=== PATIENT | male | born 1985 | race Caucasian/White ===

== ENCOUNTER 2021-04-06 23:51 | Inpatient (IN) | payer MEDICAID, SELFPAY ==
[2021-04-06 23:52] VITALS: BP 118/83; PULSE 77; RESP 16; TEMP 35.6; O2SAT 100; BMI 22.8
[2021-04-07 01:05] LABS: Absolute Lymphocyte Count 1.96 X10^3/uL (0.83-4.51); Absolute Neutrophil Count 3.4 X10^3/uL (2.0-7.7); Basophil# 0.05 X10^3/uL; Basophil% 0.8 % (0-1); Eosinophil# 0.12 X10^3/uL; Hematocrit 37.9 % (40-54); Hemoglobin 12.8 g/dL (13.0-16.5); Lymphocyte # 1.96 X10^3/ul (0.83-4.51); Lymphocyte % 33.1 % (19-41); Mean Corp Hgb Conc 33.8 g/dL (32-36); Mean Corpuscular Hgb 29.2 pg (27.0-32.0); Mean Corpuscular Volume 86.5 fL (80-94); Monocyte# 0.39 X10^3/uL; Monocyte% 6.6 % (0-10); NRBC Flagged by Analyzer 0 % (0-5); Neutrophil % 57.3 % (47-70); Platelet Count 207 K/mm3 (150-450); RBC Distribution Width CV 12.6 % (11.6-14.6); RBC Distribution Width SD 39.9 fl (35.1-43.9); Red Blood Count 4.38 M/mm3 (4.6-6.2); White Blood Count 5.9 K/mm3 (4.4-11.0)
[2021-04-07 01:24] LABS: Alcohol, Blood (Medical)-Serum < 3.0 mg/dL
[2021-04-07 01:26] LABS: Anion Gap 3 (5-15); BUN 18 mg/dL (7-18); BUN/Creat Ratio 17.1 RATIO (10-20); Calcium,Total 8.7 mg/dL (8.5-10.1); Chloride 100 mmol/L (98-107); Creatinine, Serum 1.05 mg/dL (0.70-1.30); EST Glomerular Filtration Rate 84 mL/min (>60); Est Glom Filt Rate - Afr Amer 102 mL/min (>60); Estimated Creatinine Clearance 109.68 ml/min; Glucose 86 mg/dL (74-106); Potassium 3.9 mmol/L (3.5-5.1); Sodium Level 133 mmol/L (136-145)
--- NOTE | 2021-04-07 01:58 | EX.ED.SAOD ---
HPI History of Present Illness Chief Complaint: Substance Abuse Narrative Narrative: 35-year-old male presenting for detox from fentanyl. He states he uses about a gram a day. He states he does this IV and has been doing this for a long time. Patient not have any current withdrawal symptoms because he last used prior to coming to the ED. Patient states his last detox was in assisted about 3 years ago. Patient states he has a hospital history of hep C. He denies any other drug use or alcohol abuse. [facility] Medical History Substance abuse Home Medications NK 04/06/21 [History Last Taken Unknown] Allergy/AdvReac Type Severity Reaction Status Date / Time No Known Allergies Allergy Verified 04/06/21 23:57 Social History Smoking Status: Current every day smoker tobacco type: cigarettes ROS ROS ED Constitutional Constitutional ED: Denies chills, fever(s) or sweats Eyes Eyes: Denies blurry vision or diplopia ENT ENT ED: Denies rhinorrhea or sore throat Cardiovascular Cardiovascular: Denies chest pain or palpitations Respiratory/Chest Respiratory/Chest: Denies cough or dyspnea Gastrointestinal Gastrointestinal: Denies abdominal pain, nausea or vomiting Genitourinary Genitourinary ED: Denies dysuria or urinary frequency Musculoskeletal Musculoskeletal: Denies arthralgias, myalgias or neck pain Integumentary Denies abscess or rash Neurologic Neurologic: Denies headache(s), paresthesias or weakness EXAM Physical Exam Const Vital Signs: 04/06/21 23:52 Temperature 96.1 F L Temperature Source Temporal Pulse Rate 77 Respiratory Rate 16 Blood Pressure 118/83 H Blood Pressure Mean 94 Pulse Ox 100 Oxygen Delivery Method Room Air Positive well nourished General Appearance ED: NAD HEENT Reports moist mucous membranes atraumatic Eyes PERRL and EOMs intact bilaterally Resp normal respiratory effort and clear to auscultation bilaterally Cardio regular rate and regular rhythm Neuro oriented x3 Sensorium / Orientation: alert Psych mental status grossly normal and thought process normal Skin Lesions: no lesions Rashes: no rashes MDM MDM MDM Narrative Medical decision making narrative: Patient presenting for detox. His lab work is unremarkable. EtOH is negative. Patient not experiencing symptoms currently. Discussed with hospitalist for admission and he will be admitted to he will be admitted to the medical floor in stable condition. Impression: 1. Fentanyl abuse Lab Data Labs: Laboratory Results - last 24 hr 04/07/21 04/07/21 04/07/21 00:52 00:58 00:58 WBC 5.9 RBC 4.38 L Hgb 12.8 L Hct 37.9 L MCV 86.5 MCH 29.2 MCHC 33.8 RDW Std Deviation 39.9 RDW Coeff of Liz 12.6 Plt Count 207 MPV 10.0 Immature Gran % (Auto) 0.200 Neut % (Auto) 57.3 Lymph % (Auto) 33.1 [place] % (Auto) 6.6 Eos % (Auto) 2.0 Baso % (Auto) 0.8 Absolute Neuts (auto) 3.4 Absolute Lymphs (auto) 1.96 Nucleated RBC % 0 Sodium 133 L Potassium 3.9 Chloride 100 Carbon Dioxide 30.0 Anion Gap 3 L BUN 18 Creatinine 1.05 Estim Creat Clear Calc 109.68 Est GFR (MDRD) Af Amer 102 Est GFR (MDRD) Non-Af 84 BUN/Creatinine Ratio 17.1 Glucose 86 Calcium 8.7 Ur Drug Screen Comment Ethyl Alcohol < 3.0 04/07/21 01:07 WBC RBC Hgb Hct MCV MCH MCHC RDW Std Deviation RDW Coeff of Liz Plt Count MPV Immature Gran % (Auto) Neut % (Auto) Lymph % (Auto) [place] % (Auto) Eos % (Auto) Baso % (Auto) Absolute Neuts (auto) Absolute Lymphs (auto) Nucleated RBC % Sodium Potassium Chloride Carbon Dioxide Anion Gap BUN Creatinine Estim Creat Clear Calc Est GFR (MDRD) Af Amer Est GFR (MDRD) Non-Af BUN/Creatinine Ratio Glucose Calcium Ur Drug Screen Comment Ethyl Alcohol Discharge Plan Triage Chief Complaint: Substance Abuse ED Provider: Christiano Maurice Dx/Rx/DC Orders Primary Care Provider: Care Physician,No Primary
[2021-04-07 02:14] VITALS: BP 103/69; PULSE 71; RESP 16; TEMP 36.3; O2SAT 100
[2021-04-07 03:04] LABS: Amphetamine Urine VISTA NEGATIVE (<1000 ng/mL); Barbiturate Urine VISTA NEGATIVE (< 200 ng/mL); Benzodiazepine Urine VISTA NEGATIVE (< 200 ng/mL); Cocaine Urine VISTA NEGATIVE (< 300 ng/mL); Ecstacy Urine VISTA NEGATIVE (< 500 ng/mL); Methadone Urine VISTA NEGATIVE (< 300 ng/mL); PCP Urine VISTA NEGATIVE (< 25 ng/mL); THC Urine VISTA NEGATIVE (< 50 ng/mL); Vista UDS pH Range 5
--- NOTE | 2021-04-07 03:16 | HP.PCM.HOS_ITS ---
HPI - General General Date of Admission: 04/07/21 HPI Narrative VANCE MENDES, is a 35 M who presents to the hospital requesting detox. He is about a gram a day of fentanyl and his last use was immediately prior to admission to the hospital. He had been clean for some time and started using again in his past year, he is vague about the reasons why but states that he stopped going to his AA meetings and stopped talking to his sponsor. He would like to try to get clean again and is okay with meeting with [facility] for outpatient management once he completes the acute detox. He also states that he has a history of hepatitis C and he knows that it is why get retested but he is okay with being tested for HIV again, previous test have been negative. [facility] Medical History Substance abuse Home Medications NK 04/06/21 [History Last Taken Unknown] Allergy/AdvReac Type Severity Reaction Status Date / Time No Known Allergies Allergy Verified 04/06/21 23:57 Family History (Updated 04/07/21 @ 03:[address] Keyshawn Leung MD) Other Diabetes Social History Smoking Status: Current every day smoker tobacco type: cigarettes ROS Constitutional Constitutional: Denies chills, fatigue, fever(s) or malaise Eyes Eyes: Denies blurry vision ENT HEENT: Denies headache(s) or nasal discharge Cardiovascular Cardiovascular: Denies chest pain, dyspnea on exertion or syncope Respiratory/Chest Respiratory/Chest: Denies cough, shortness of breath at rest or shortness of breath with exertion Gastrointestinal Gastrointestinal: Denies constipation, diarrhea, nausea or vomiting Genitourinary Genitourinary: Denies dysuria Neurologic Neurologic: Denies focal weakness, numbness or tremor(s) Psychiatric Psychiatric: Denies anxiety or depression Vital Signs Vital Signs Vital Signs: 04/06/21 23:52 04/07/21 02:14 Temperature 96.1 F L 97.4 F L Temperature Source Temporal Temporal Pulse Rate 77 71 Respiratory Rate 16 16 Blood Pressure 118/83 H 103/69 Blood Pressure Mean 94 80 Pulse Ox 100 100 Oxygen Delivery Method Room Air Room Air Weight Weight: 177 lb 7.554 oz Body Mass Index (BMI) 22.8 Physical Exam Const alert, oriented x3 and no apparent distress General Appearance: cooperative HEENT normocephalic and moist oral mucous membranes Eyes PERRL, EOMs intact bilaterally and conjunctivae normal Neck supple and no JVD Resp normal respiratory effort, no retractions, no use of accessory muscles and clear to auscultation bilaterally Auscultation: Negative for crackles, rales, rhonchi or wheezes Cardio regular rate, regular rhythm, S1 normal heart sound, S2 normal heart sound and no murmurs GI soft to palpation, non-tender and non-distended; Negative for hepatosplenomegaly Extremity no clubbing, cyanosis or edema Skin Skin Narrative: Bilateral track silverio in his antecubital fossa Neuro no focal motor deficits and no sensory deficits noted Psych affect normal Appearance: appropriate Results Lab / Micro Data Result Diagrams: 04/07/21 00:58 04/07/21 00:52 Labs: Laboratory Results - last 24 hr 04/07/21 00:52: Sodium 133 L, Potassium 3.9, Chloride 100, Carbon Dioxide 30.0, Anion Gap 3 L, BUN 18, Creatinine 1.05, Estim Creat Clear Calc 109.68, Est GFR (MDRD) Af Amer 102, Est GFR (MDRD) Non-Af 84, BUN/Creatinine Ratio 17.1, Glucose 86, Calcium 8.7 04/07/21 00:58: WBC 5.9, RBC 4.38 L, Hgb 12.8 L, Hct 37.9 L, MCV 86.5, MCH 29.2, MCHC 33.8, RDW Std Deviation 39.9, RDW Coeff of Liz 12.6, Plt Count 207, MPV 10.0, Immature Gran % (Auto) 0.200, Neut % (Auto) 57.3, Lymph % (Auto) 33.1, [place] % (Auto) 6.6, Eos % (Auto) 2.0, Baso % (Auto) 0.8, Absolute Neuts (auto) 3.4, Absolute Lymphs (auto) 1.96, Nucleated RBC % 0 04/07/21 00:58: Ethyl Alcohol < 3.0 04/07/21 01:07: Urine Opiates Screen NEGATIVE, Urine Methadone Screen NEGATIVE, Ur Barbiturates Screen NEGATIVE, Ur Phencyclidine Scrn NEGATIVE, Ur Amphetamines Screen NEGATIVE, U Methamphetamin-MDMA NEGATIVE, U Benzodiazepines Scrn NEGATIVE, Urine Cocaine Screen NEGATIVE, U Cannabinoids Screen NEGATIVE, Ur Drug Screen Comment Assessment & Plan Assessment/Plan (1) Opiate abuse, continuous: PLAN: 1. Acute opiate withdrawal/hep C/tobacco abuse -Continue with the opiate withdrawal protocol, he is hepatitis C positive -We will follow up with [facility] as an outpatient -Test for HIV -He does understand that he cannot get treatment for hepatitis C until he is clean DVT: Ambulation Charges/Coding Visit Charges Inpatient E&M: 12256 Init Hosp L2
[2021-04-07 03:46] VITALS: PULSE 68; BMI 22.4
[2021-04-07 03:55] VITALS: BP 106/74; PULSE 67; RESP 12; TEMP 36.7; O2SAT 100
--- NOTE | 2021-04-07 05:08 | PCS.PANDOC ---
PANDEMIC DOCUMENTATION INITIATED: Date: 03/14/2021 Time: 5003
--- NOTE | 2021-04-07 05:09 | PCS.PANDOC ---
PANDEMIC DOCUMENTATION INITIATED: Date: 04/07/2021 Time: 1179
--- NOTE | 2021-04-07 09:59 | ADDICTION ---
TW met with PT to complete the ASAM, AUDIT, DUDIT, MSE, and start d/c planning. PT was a+ox4, pleasant, and answered all questions asked. PT reported he attended residential treatment and sober living in 2017 and had 3.5 years sober. He reported he relapsed in 2019 and has been using for approximately a year. Pt stated he was recently arraigned on 04/05/21 and was mandated to give UDS daily until June. Pt reported he needed to enter detox before being able to do so. PT requested a DORIE be filled out for [facility] Common Pleas and TW called over to inform them of PT's admission to detox. Pt stated he wanted resources in [facility] due to having to go back and forth to court. He also reported he wanted to d/c home in order to pack his belongings and move back to [place] where his sober support lives. TW will provide resources and inquire again about making an appointment. No transportation needs necessary.
--- NOTE | 2021-04-07 10:44 | ADDICTION ---
TW provided PT with AA/NA resources in [place] and surrounding areas and provided resources for [facility] in [place]. TW obtained DORIE for [facility] and faxed application to have [facility] pay for PT's stay at detox.
[2021-04-07] MEDS: hydrOXYzine PAM 25 MG Capsule 50 MG PO ×2 (10:54→17:58)
[2021-04-07] MEDS: Dicyclomine 10 MG Capsule 20 MG PO (10:54)
[2021-04-07] MEDS: Methocarbamol 750 MG Tablet 1500 MG PO ×2 (10:54→17:58)
--- NOTE | 2021-04-07 12:55 | CASEMGMT ---
Social Work SW met with pt and provided financial resources as pt does not have medical insurance. Pt states he recently has applied for Medicaid but has not heard a response from [employer]. SW encouraged pt to be in contact with S regarding application. Resources for [employer]anna [employer], [employer], prescription assistance, [employer] and medicaid provided. Pt accepting of information and has no further questions and denies any needs. MILAGROS William
[2021-04-07] MEDS: Buprenorphine HCl 2 MG TAB.SUBL SL ×2 (13:32→19:12)
--- NOTE | 2021-04-07 13:46 | PCM.PN.HOSP ---
Subjective Subjective Patient has anxiety restlessness, fatigue and not feeling good. No fever. Objective Data Objective Data Vital Signs: Vital Signs Temp Pulse Resp BP Pulse Ox 98.1 F 67 12 106/74 100 04/07/21 03:55 04/07/21 03:55 04/07/21 03:55 04/07/21 03:55 04/07/21 03:55 Oxygen Delivery Method Room Air Weight: 174 lb 2.643 oz Body Mass Index (BMI) 22.4 Intake & Output: Intake and Output for Last 24 Hours 04/05/21 04/06/21 04/07/21 23:59 23:59 23:59 Intake Total 410 / 410 Balance 410 / 410 Lab / Micro Data Result Diagrams: 04/07/21 00:58 04/07/21 00:52 Labs: Laboratory Results - last 24 hr 04/07/21 00:52: Sodium 133 L, Potassium 3.9, Chloride 100, Carbon Dioxide 30.0, Anion Gap 3 L, BUN 18, Creatinine 1.05, Estim Creat Clear Calc 109.68, Est GFR (MDRD) Af Amer 102, Est GFR (MDRD) Non-Af 84, BUN/Creatinine Ratio 17.1, Glucose 86, Calcium 8.7 04/07/21 00:58: WBC 5.9, RBC 4.38 L, Hgb 12.8 L, Hct 37.9 L, MCV 86.5, MCH 29.2, MCHC 33.8, RDW Std Deviation 39.9, RDW Coeff of Liz 12.6, Plt Count 207, MPV 10.0, Immature Gran % (Auto) 0.200, Neut % (Auto) 57.3, Lymph % (Auto) 33.1, [place] % (Auto) 6.6, Eos % (Auto) 2.0, Baso % (Auto) 0.8, Absolute Neuts (auto) 3.4, Absolute Lymphs (auto) 1.96, Nucleated RBC % 0 04/07/21 00:58: Ethyl Alcohol < 3.0 04/07/21 01:07: Urine Opiates Screen NEGATIVE, Urine Methadone Screen NEGATIVE, Ur Barbiturates Screen NEGATIVE, Ur Phencyclidine Scrn NEGATIVE, Ur Amphetamines Screen NEGATIVE, U Methamphetamin-MDMA NEGATIVE, U Benzodiazepines Scrn NEGATIVE, Urine Cocaine Screen NEGATIVE, U Cannabinoids Screen NEGATIVE, Ur Drug Screen Comment Micro: Microbiology 04/07/21 02:12 Nasal Secretion SARS-CoV-2 Antigen (Rapid) - Final Physical Exam Narrative Physical exam General: Alert, Oriented x3, Cooperative HEENT: Atraumatic, PERRLA, EOMI, Normocephalic Oral: No Gingival or Mucosal Lesions/ Ulcerations Neck: Supple, No JVD, Negative Carotid Bruits Lungs: Air entry equal in bilateral lung bases. No crepitation/rhonchi Cardiovascular: Regular rate, Regular Rhythm, Normal S1, Normal S2, No murmurs Abdomen: Bowel Sounds Present, Soft, Non Tender, Non-Distended : No renal angle tenderness. No suprapubic tenderness. Extremities: No edema, Capillary Refill Less than 3 Seconds Skin: Needle silverio over bilateral antecubital region. Musculoskeletal: No Tenderness to Palpation of Joints or Extremities Neurological: Cranial nerves II-XII grossly intact, DTR 2+/4 and Symmetrical, Neuro grossly intact Psych/Mental Status: Anxious, restless. Assessment & Plan Assessment/Plan (1) Opiate abuse, continuous: PLAN: 1. Acute opioid withdrawal syndrome with history of chronic opioid use: Patient uses IV fentanyl. He is chronic hepatitis C. Has not had any treatment of chronic hepatitis C in the past. On buprenorphine based other adjunctive medications for control of withdrawal symptoms. [address] consult on board. 2. DVT prophylaxis: Low risk. Early ambulation encouraged.
--- NOTE | 2021-04-07 14:50 | CHAPLAIN ---
Type of Pastoral Visit _x__ Initial Visit ___ Follow-up Visit ___ On-call Visit ___ General Patient Visit ___ Spiritual Assessment ___ Family Conference ___ Bereavement ___ Rapid Response ___ Code Blue ___ Other (describe below) Pastoral Care Referral From _x__ Patient ___ Family ___ Nurse ___ Physician ___ Aluminum Siding Installer ___ Consulting Practice Manager ___ Other (describe below) Sacrament/Intervention _x__ Active listening ___ Anointing ___ Faith ___ Bereavement ___ Communion _x__ Zakia exploration ___ _x__ Life review _x__ Prayer ___ Reconciliation ___ Sacrament of Sick _x__ Supportive presence ___ Wedding ___ Other (describe below) Pastoral Comments patient very open to spiritual care and is talkative about his life, his relapse and becoming disconnected from God, family, and others; patient reports having a loving family that will take him back and for a spiritual zakia experience from his previous time in [place] that gives him hope for the future; pt states having the knowledge about coping and recovery but needs to do the work again; pt welcomes prayer and presence of court security officer for support
[2021-04-07] MEDS: cloNIDine HCl 0.1 MG Tablet PO (16:22)
[2021-04-07] MEDS: Ondansetron 8 MG Tablet PO (16:22)
[2021-04-07 16:23] VITALS: BP 106/64; PULSE 70; RESP 18; TEMP 37; O2SAT 100
[2021-04-07] MEDS: Gabapentin 300 MG Capsule PO (16:23)
[2021-04-07 20:42] VITALS: BP 108/71; PULSE 51; RESP 16; TEMP 37.1; O2SAT 98
[2021-04-08] MEDS: Buprenorphine HCl 2 MG TAB.SUBL SL ×2 (03:39→11:23)
[2021-04-08] MEDS: Methocarbamol 750 MG Tablet 1500 MG PO (03:39)
[2021-04-08] MEDS: Gabapentin 300 MG Capsule PO (03:39)
[2021-04-08] MEDS: cloNIDine HCl 0.1 MG Tablet PO (03:39)
[2021-04-08] MEDS: Ondansetron 8 MG Tablet PO (03:39)
[2021-04-08 03:43] VITALS: BP 110/66; PULSE 52; RESP 16; TEMP 37.7; O2SAT 97
[2021-04-08 08:10] VITALS: BP 108/73; PULSE 51; RESP 18; TEMP 36.9; O2SAT 100
--- NOTE | 2021-04-08 11:03 | ADDICTION ---
TW met with PT to finish d/c planning and offer supportive counseling. PT stated he wants to follow up with [facility] Ple[facility] first to determine if he will be incarcerated before committing to an appointment. TW reminded him of the resources she provided him for AA and NA meetings as well as information on [facility]. Pt stated he would f/u as soon as he knew about court.
--- NOTE | 2021-04-08 12:33 | NURSING ---
INTO TALK WITH PT. PT NOTED TO HAVE HIS SHOES AND UNDERSHIRT ON. PT VERBALIZED WISHES TO LEAVE AMA. STATES FEELS BETTER AND TIRED OF WAITING AROUND
--- NOTE | 2021-04-08 13:10 | PCM.DC.SUM ---
Providers Date of Admission: 04/07/21 Primary Care Physician: No Primary Care Phys Reason For Visit: OPIATE Diagnosis Discharge Diagnosis (1) Opiate abuse, continuous: Status: Acute Code(s): F11.10 - Opioid abuse, uncomplicated Medications at Discharge Home Medications NK 04/06/21 Hospital Course Summary of Care Provided Hospital Course: This 35-year-old gentleman with history of chronic opioid withdrawal admitted with acute opioid withdrawal syndrome. Patient was admitted to [facility] floor and treated as mentioned below. 1. Acute opioid withdrawal syndrome with history of chronic opioid use: Patient uses IV fentanyl. He is chronic hepatitis C. Has not had any treatment of chronic hepatitis C in the past. On buprenorphine based other adjunctive medications for control of withdrawal symptoms. 180 consult on board. 2. DVT prophylaxis: Low risk. Early ambulation encouraged. The patient was advised against AMA and emphasized the need to complete the treatment. Patient signed AMA. He states he feels and wants to go home. Earlier piano case maker saw the patient and has outpatient rehab appointment with [facility]. Patient was advised to follow-up with rehab. Physical Exam Narrative Seen and examined Patient feeling better today. Denies delusional thoughts, hallucination. Mild anxiety otherwise no tremors, nausea vomiting or diarrhea or abdominal cramps. General: Alert, Oriented x3, Cooperative HEENT: Atraumatic, PERRLA, EOMI, Normocephalic Oral: No Gingival or Mucosal Lesions/ Ulcerations Neck: Supple, No JVD, Negative Carotid Bruits Lungs: Air entry equal in bilateral lung bases. No crepitation/rhonchi Cardiovascular: Regular rate, Regular Rhythm, Normal S1, Normal S2, No murmurs Abdomen: Bowel Sounds Present, Soft, Non Tender, Non-Distended : No renal angle tenderness. No suprapubic tenderness. Extremities: No edema, Capillary Refill Less than 3 Seconds Skin: No rashes, No breakdown Musculoskeletal: No Tenderness to Palpation of Joints or Extremities Neurological: Cranial nerves II-XII grossly intact, DTR 2+/4 and Symmetrical, Neuro grossly intact Psych/Mental Status: Normal Affect, Appropriate. Weight / BMI Weight Weight: 174 lb 2.643 oz Body Mass Index (BMI) 22.4 ABG / Lab / Microbiology Data Result Diagrams: 04/07/21 00:58 04/07/21 00:52 Microbiology: Microbiology 04/07/21 02:12 Nasal Secretion SARS-CoV-2 Antigen (Rapid) - Final Meaningful Use Info Meaningful Use Diagnoses (Choose all that apply): None applicable Discharge Plan Admission Admit Date/Time: 04/07/21 02:11 Primary Reason for Your Visit: Acute opioid withdrawal syndrome Attending Provider: Tim Rosenbaum Primary Care Provider: Care Physician,No Primary Discharge Orders/Prescriptions Prescriptions: No Action NK RF: 0 Referrals / Follow Up: Care Physician,No Primary [Primary Care Provider] - Disposition Disposition (needs filled in before D/C Order can be placed): Against Medical Advice Charges/Coding Visit Charges Inpatient E&M: 15068 Disch Hosp
== END 2021-04-08 12:35 | disposition left against medical advice (07) | DRG 894 ==
LOC: ED 04-07 01:16 → MS3 04-07 02:45
PROVIDERS: Admitting Provider Family Medicine; Emergency Provider Student in an Organized Health Care Education/Training Program; Visit Provider Internal Medicine
DX: F11.23 Opioid dependence with withdrawal (principal); B18.2 Chronic viral hepatitis C; F17.210 Nicotine dependence, cigarettes, uncomplicated; F41.9 Anxiety disorder, unspecified
CPT/HCPCS: 80048; 80307; 82077; 85025; 87426; 97802; 99283; 99406